=== PATIENT | male | born 1990 | race Hispanic/Latino ===

== ENCOUNTER 2024-06-06 18:12 | Emergency (ER) | payer SELFPAY ==
[~2024-06-06] VITALS: Ht 160 cm; Wt 63.5 kg
[2024-06-06 18:20] VITALS: TEMP 97.2
[2024-06-06] MEDS ORDERED: OSEL75CA PO (21:03)
[2024-06-06 21:15] VITALS: BP 126/82; O2SAT 96
[2024-06-06] MEDS: OSELTAMIVIR PHOSPHATE 75 MG CAP PO ONE (21:17)
== END 2024-06-06 21:34 | disposition home or self-care (01) ==
LOC: M ED 18:12
DX: J09.X2 Influenza due to identified novel influenza A virus with other respiratory manifestations (principal); Z79.899 Other long term (current) drug therapy